=== PATIENT | female | born 2000 | race African-American/Black ===

== ENCOUNTER 2024-12-29 07:28 | Emergency (ER) | payer SELFPAY ==
[~2024-12-29] VITALS: Ht 160 cm; Wt 50.0 kg
[2024-12-29 07:43] VITALS: O2SAT 99
[2024-12-29 08:20] VITALS: BP 109/72; PULSE 82; RESP 18; TEMP 36.8; O2SAT 99
[2024-12-29] MEDS ORDERED: OCUFLX EACHEYE (08:23)
[2024-12-29] MEDS ORDERED: ACET-2708 MT (23:53)
[2024-12-29] MEDS ORDERED: IBUP-2028 MT (23:53)
[2024-12-29] MEDS ORDERED: BENZ100C86 MT (23:53)
== END 2024-12-29 08:31 | disposition home or self-care (01) ==
LOC: ER 07:28
DX: H10.9 Unspecified conjunctivitis (principal)
CPT/HCPCS: 99283

== ENCOUNTER 2024-12-29 22:08 | Emergency (ER) | payer SELFPAY ==
[~2024-12-29] VITALS: Ht 165.1 cm; Wt 52.3 kg
[~2024-12-29 22:08] MED LIST: OCUFLX EACHEYE
[2024-12-29 22:23] VITALS: O2SAT 100
[2024-12-29] MEDS: ACETAMINOPHEN 500MG TABLET PO ONE (23:17)
[2024-12-29] MEDS: IBUPROFEN 400MG TABLET PO ONE (23:17)
[2024-12-29] MEDS ORDERED: IBUP-2028 MT (23:53)
[2024-12-29] MEDS ORDERED: BENZ100C86 MT (23:53)
[2024-12-29] MEDS ORDERED: ACET-2708 MT (23:53)
[2024-12-30] LABS: INFLUENZA TYPE A Presumptive Negative (Pres. Neg.)
[2024-12-30 00:01] LABS: INFLUENZA TYPE B Presumptive Negative (Pres. Neg.); RESPIRATORY SYNCYTIAL VIRUS Not Detected (Not Detectd)
[2024-12-30 00:11] VITALS: BP 109/69; PULSE 69; RESP 15; TEMP 36.5; O2SAT 100
== END 2024-12-30 00:13 | disposition home or self-care (01) ==
LOC: ER 22:08
DX: J06.9 Acute upper respiratory infection, unspecified (principal); B97.89 Other viral agents as the cause of diseases classified elsewhere; R05.9 Cough, unspecified; Z20.822 Contact with and (suspected) exposure to COVID-19
CPT/HCPCS: 81025; 87070; 87420; 87426; 87430; 87804; 99283

== ENCOUNTER 2025-01-02 10:31 | Emergency (ER) | payer SELFPAY ==
[~2025-01-02] VITALS: Ht 165.1 cm; Wt 53.0 kg
[~2025-01-02 10:31] MED LIST changes: +ACET-2708 MT; +BENZ100C86 MT; +IBUP-2028 MT
[2025-01-02 10:42] VITALS: O2SAT 99
[2025-01-02 11:03] VITALS: BP 115/55; PULSE 67; RESP 18; TEMP 36.8; O2SAT 99
== END 2025-01-02 11:04 | disposition home or self-care (01) ==
LOC: ER 10:35
DX: J06.9 Acute upper respiratory infection, unspecified (principal); B97.89 Other viral agents as the cause of diseases classified elsewhere; Z76.0 Encounter for issue of repeat prescription
CPT/HCPCS: 99282